=== PATIENT | female | born 1935 ===

== ENCOUNTER 2017-04-14 07:10 | Observation (INO) | payer MEDICAID, OTHER ==
[2017-04-14 07:10] VITALS: BMI 31.4
--- NOTE | 2017-04-14 07:46 | ED PDOC ---
HPI: CCC, URI, Sore Throat Time Seen by Provider: 04/14/17 07:13 Chief Complaint (Provider): Cough, cold, congestion History Per: Patient History/Exam Limitations: no limitations Have you had recent travel within the past 21 days to any of the following countries: [place], [place], [place] or [place]?: No Onset/Duration Of Symptoms: Days Current Symptoms Are (Timing): Still Present Additional Complaint(s): The patient is an 82yo female, presents to the ED complaining of cough for the past week with white sputum. She reports associated mild shortness of breath but denies any fever, chills, chest pain. She has not taken any medications for her symptoms. Patient offers no additional medical complaints. Past Medical History Reviewed: Historical Data, Nursing Documentation, Vital Signs Vital Signs: Last Vital Signs Temp 98.6 F 04/14/17 07:46 Pulse 71 04/14/17 07:46 Resp 18 04/14/17 07:46 BP 161/78 H 04/14/17 07:46 Pulse Ox 98 04/14/17 07:46 - Medical History PMH: Anemia, Arthritis, HTN, Hypercholesterolemia, TIA Denies: HIV, Chronic Kidney Disease - Surgical History Surgical History: Appendectomy - Family History Family History: States: Unknown Family Hx - Home Medications Home Medications: Ambulatory Orders Medication Instructions Recorded Pravastatin Sodium [Pravastatin] 40 mg PO DAILY 09/30/14 Cyanocobalamin [Vitamin B12 1000 1,000 mcg PO DAILY 11/12/14 mcg Tab] Meclizine HCl 25 mg PO BID PRN 11/12/14 [id number] Ethyl Esters [Lovaza] 2 gm PO DAILY 11/12/14 Ciprofloxacin/Ciprofloxa HCl 500 mg PO BID #14 ter 11/15/14 [Ciprofloxacin] Dipyridamole [Persantine] 25 mg PO BID #60 tab 11/15/14 Ferrous Sulfate [Feosol] 324 mg PO BID #0 ect 11/15/14 Metronidazole 500 mg PO TID #21 tab 11/15/14 Meloxicam [Mobic] 15 mg PO DAILY #30 tab 01/06/15 Nitrofurantoin Macrocrystals 100 mg PO BID #14 cap 01/06/15 [Macrobid] Tramadol HCl [Ultram] 50 mg PO Q8 #15 tab 03/24/15 Albuterol 0.083% [Albuterol 0.083% 3 ml IH Q6H PRN #30 neb 04/14/17 Inhal Manisha (2.5 mg/3 ml) UD] Albuterol HFA [Ventolin HFA 90 2 puff IH [id number] PRN #1 bottle 04/14/17 mcg/actuation (8 g)] Azithromycin [Zithromax] 250 mg PO DAILY #4 tab 04/14/17 Nebulizer [Compact Compressor 1 dev XX PRN PRN #1 dev 04/14/17 Nebulizer] Prednisone 50 mg PO DAILY #4 tab 04/14/17 - Allergies Allergies/Adverse Reactions: Allergies Allergy/AdvReac Type Severity Reaction Status Date / Time Penicillins Allergy RASH Verified 04/14/17 07:43 Review of Systems ROS Statement: Except As Marked, All Systems Reviewed And Found Negative Constitutional: Negative for: Fever, Chills Cardiovascular: Negative for: Chest Pain Respiratory: Positive for: Cough, Shortness of Breath (mild), Sputum Physical Exam - Reviewed Nursing Documentation Reviewed: Yes Vital Signs Reviewed: Yes - Physical Exam Appears: Positive for: Well, Non-toxic, No Acute Distress Head Exam: Positive for: ATRAUMATIC, NORMAL INSPECTION, NORMOCEPHALIC Skin: Positive for: Normal Color, Warm, DRY Eye Exam: Positive for: Normal appearance ENT: Positive for: Normal ENT Inspection Neck: Positive for: Normal, Supple Cardiovascular/Chest: Positive for: Regular Rate, Rhythm Respiratory: Positive for: Normal Breath Sounds. Negative for: Respiratory Distress Gastrointestinal/Abdominal: Positive for: Normal Exam, Soft Neurologic/Psych: Positive for: Alert, Oriented. Negative for: Motor/Sensory Deficits - Laboratory Results Result Diagrams: 04/14/17 08:15 04/14/17 08:15 Medical Decision Making Medical Decision Making: Time: 0720 Impression: rule out bronchitis, pneumonia, URI Plan: -- CXR -- Labs -- Duoneb 3.0 ml INH -- Zithromax 500mg/250ml NS Reassess Time: 09 Patient reports feeling much better. Time: 1006 Solumedrol 125 mg IVP ordered Duoneb 3.0 ml INH ordered Time: [address] Sewell, patient's pcp who is aware. Discussed plan of admission with patient for further evaluation. Patient currently refusing to be admitted. Discussed extensively with patient the need for admission and the risks and benefits of going home. Patient expresses understanding but is still refusing admission. Time: 1210 Patient seen and evaluated by Dr. Sewell at bedside, patient is requesting to go home. Dr. Sewell states patient can be discharged home, she will follow up with him. Patient stable for discharge home, and instructed to follow up with her PCP and return to ED if symptoms worsen or new symptoms arise. Patient expresses understanding and is agreeable. Scribe Attestation: Documented by Lianne Stapleton acting as a scribe for Lexi Lei MD. Provider Attestation: All medical record entries made by the Scribe were at my direction and personally dictated by me. I have reviewed the chart and agree that the record accurately reflects my personal performance of the history, physical exam, medical decision making, and the department course for this patient. I have also personally directed, reviewed, and agree with the discharge instructions and disposition. Disposition - Clinical Impression Clinical Impression: Acute bronchitis - Disposition Disposition: Routine/Home Disposition Time: 11:15 Condition: IMPROVED
[2017-04-14 07:50] VITALS: BP 161/78; PULSE 71; RESP 18; TEMP 98.6; O2SAT 98
[2017-04-14] MEDS ORDERED: Azithromycin 500 MG in Sodium Chloride 0.9% 250 ML IV STA (08:00)
[2017-04-14] MEDS ORDERED: Albuterol-Ipratrop 3 mg / 0.5 (3 ml) UD INH STA ×2 (08:00→10:06)
[2017-04-14] MEDS ORDERED: Azithromycin 500 MG IV IVPB ONE (08:30)
[2017-04-14 08:41] LABS: BASO % 0.5 % (0.0-2.0); EOS # 0.4 K/uL (0.0-0.7); EOS % 4.6 % (0.0-4.0); HEMATOCRIT 40.3 % (34.0-47.0); LYMPH # 1.6 K/uL (1.0-4.3); LYMPH % 19.4 % (20.0-40.0); MEAN CELL VOLUME 92.6 fl (81.0-99.0); MEAN CORPUSCULAR HGB CONC 33.5 g/dL (33.0-37.0); MEAN PLATELET VOLUME 8.5 fl (7.2-11.7); MONO # 0.7 K/uL (0.0-0.8); MONO % 8.3 % (0.0-10.0); NEUT # 5.6 K/uL (1.8-7.0); NEUT % 67.2 % (50.0-75.0); WHITE BLOOD COUNT 8.3 K/uL (4.8-10.8)
[2017-04-14 09:10] LABS: ALB/GLOB RATIO 1.2 (1.0-2.1); ALKALINE PHOSPHATASE 72 U/L (38-126); ALT/SGPT 34 U/L (9-52); AST/SGOT 30 U/L (14-36); BILIRUBIN,TOTAL 1.2 mg/dl (0.2-1.3); BLOOD UREA NITROGEN 15 mg/dl (7-17); CALCIUM 9.7 mg/dL (8.4-10.2); CARBON DIOXIDE 28 mmol/L (22-30); CHLORIDE 104 mmol/L (98-107); GFR AFRICAN-AMERICAN > 60; GLUCOSE,RANDOM 103 mg/dL (65-105); POTASSIUM 4.4 MMOL/L (3.6-5.0); SODIUM 142 mmol/l (132-148); TOTAL PROTEIN 8.3 G/DL (6.3-8.2)
--- NOTE | 2017-04-14 10:09 | CARD ---
APPROVED REPORT EKG Measurement Heart [id number] VT [id number] <Conclusion> Normal sinus rhythm Normal ECG
[2017-04-14] MEDS ORDERED: Albuterol-Ipratrop 3 mg / 0.5 (3 ml) UD ONE (10:34)
--- NOTE | 2017-04-14 16:23 | RAD ---
HISTORY: Cough COMPARISON: Comparison made with chest radiograph dated 03/14/2016 TECHNIQUE: Chest PA and lateral FINDINGS: LUNGS: No active pulmonary disease. PLEURA: Minor biapical pleural thickening. No apparent pneumothorax or effusion. CARDIOVASCULAR: Normal. OSSEOUS STRUCTURES: Minor multilevel degenerative spondylosis of the thoracic spine there is mild dextroscoliosis centered at the mid to lower thoracic region. . VISUALIZED UPPER ABDOMEN: Normal. OTHER FINDINGS: None. IMPRESSION: No acute infiltrates. Minor biapical pleural thickening felt be present.
== END 2017-04-14 15:17 | disposition home or self-care (01) ==
LOC: H.ER 07:10 → H.ERHOLD 11:44
PROVIDERS: ADMIT Family Medicine; ATTEND Family Medicine
DX: J20.9 Acute bronchitis, unspecified (principal); E78.00 Pure hypercholesterolemia, unspecified; I10 Essential (primary) hypertension; Z86.73 Personal history of transient ischemic attack (TIA), and cerebral infarction without residual deficits; Z88.0 Allergy status to penicillin; M19.90 Unspecified osteoarthritis, unspecified site
CPT/HCPCS: 71020; 80053; 85025; 87040; 93005; 96365; 96375; 99281; G0378; J0456; J2930

== ENCOUNTER 2017-06-21 10:42 | Emergency (ER) | payer OTHER ==
[2017-06-21 10:43] VITALS: BMI 24.4
[2017-06-21] MEDS ORDERED: Sodium Chloride 0.9% 1,000 ML IV STA (11:24)
[2017-06-21 11:52] LABS: BASO % 0.5 % (0.0-2.0); EOS # 0.2 K/uL (0.0-0.7); EOS % 1.7 % (0.0-4.0); HEMATOCRIT 40.9 % (34.0-47.0); LYMPH # 1.6 K/uL (1.0-4.3); LYMPH % 18.1 % (20.0-40.0); MEAN CORPUSCULAR HEMOGLOBIN 30.9 pg (27.0-31.0); MEAN CORPUSCULAR HGB CONC 33.5 g/dL (33.0-37.0); MEAN PLATELET VOLUME 8.6 fl (7.2-11.7); MONO # 0.5 K/uL (0.0-0.8); MONO % 5.8 % (0.0-10.0); NEUT # 6.5 K/uL (1.8-7.0); NEUT % 73.9 % (50.0-75.0); RED CELL DISTRIBUTION WIDTH 13.4 % (11.5-14.5); WHITE BLOOD COUNT 8.8 K/uL (4.8-10.8)
--- NOTE | 2017-06-21 11:56 | ED PDOC ---
Syncope/Near Syncope/Dizziness Time Seen by Provider: 06/21/17 10:54 Chief Complaint (Nursing): Dizziness/Lightheaded Chief Complaint (Provider): Dizziness History Per: Patient History/Exam Limitations: no limitations Onset/Duration Of Symptoms: Hrs (morning prior to arrival ) Additional Complaint(s): Alisha Concepcion is an 82 year old female with a past medical history of hypercholesterolemia, hypertension, previous TIA, arthritis, and anemia and a past surgical history of an appendectomy and a hernia repair presenting to the ED for an evaluation of dizziness occurring this morning prior to arrival. The patient reports a spinning sensation experienced this morning and states having similar symptoms in the past. She had a cold temperature when touching her face and a minor headache felt to the back of her head associated with her dizziness. She measured her blood pressure this morning resulting as 96/59. The patient did not take her blood pressure medication, Meclizine, this morning which she normally takes twice a day, once in the morning and once at night. Upon evaluation, the patient reports no current dizziness. She denies fever, vomiting, diarrhea, chest pain, shortness of breath, abdominal pain, any disturbance in bowel movements, dysuria, hematuria, leg pain, or leg swelling. PMD: Uzair Sewell MD Past Medical History Reviewed: Historical Data, Nursing Documentation, Vital Signs Vital Signs: Last Vital Signs Temp 97.9 F 06/21/17 10:54 Pulse 63 06/21/17 11:29 Resp 16 06/21/17 11:29 BP 174/95 H 06/21/17 11:29 Pulse Ox 97 06/21/17 11:29 - Medical History PMH: Anemia, Arthritis, HTN, Hypercholesterolemia, TIA Denies: HIV, Chronic Kidney Disease - Surgical History Surgical History: Appendectomy, Hernia Repair - Family History Family History: States: Unknown Family Hx - Social History Current smoker - smoking cessation education provided: No Ex-Smoker (has not smoked in the last 12 months): No Alcohol: None Drugs: Denies - Home Medications Home Medications: Ambulatory Orders Medication Instructions Recorded Pravastatin Sodium [Pravastatin] 40 mg PO DAILY 09/30/14 Cyanocobalamin [Vitamin B12 1000 1,000 mcg PO DAILY 11/12/14 mcg Tab] Meclizine HCl 25 mg PO BID PRN 11/12/14 [id number] Ethyl Esters [Lovaza] 2 gm PO DAILY 11/12/14 Ciprofloxacin/Ciprofloxa HCl 500 mg PO BID #14 ter 11/15/14 [Ciprofloxacin] Dipyridamole [Persantine] 25 mg PO BID #60 tab 11/15/14 Ferrous Sulfate [Feosol] 324 mg PO BID #0 ect 11/15/14 Metronidazole 500 mg PO TID #21 tab 11/15/14 Meloxicam [Mobic] 15 mg PO DAILY #30 tab 01/06/15 Nitrofurantoin Macrocrystals 100 mg PO BID #14 cap 01/06/15 [Macrobid] Tramadol HCl [Ultram] 50 mg PO Q8 #15 tab 03/24/15 Albuterol 0.083% [Albuterol 0.083% 3 ml IH Q6H PRN #30 neb 04/14/17 Inhal Manisha (2.5 mg/3 ml) UD] Albuterol HFA [Ventolin HFA 90 2 puff IH [id number] PRN #1 bottle 04/14/17 mcg/actuation (8 g)] Azithromycin [Zithromax] 250 mg PO DAILY #4 tab 04/14/17 Nebulizer [Compact Compressor 1 dev XX PRN PRN #1 dev 04/14/17 Nebulizer] Prednisone 50 mg PO DAILY #4 tab 04/14/17 - Allergies Allergies/Adverse Reactions: Allergies Allergy/AdvReac Type Severity Reaction Status Date / Time Penicillins Allergy RASH Verified 06/21/17 11:08 Review of Systems ROS Statement: Except As Marked, All Systems Reviewed And Found Negative Constitutional: Positive for: Chills (cold temperature felt to face). Negative for: Fever Cardiovascular: Negative for: Chest Pain Respiratory: Negative for: Shortness of Breath Gastrointestinal: Positive for: Other (normal bowel movements). Negative for: Vomiting, Abdominal Pain, Diarrhea Genitourinary Female: Negative for: Dysuria, Hematuria Musculoskeletal: Negative for: Leg Pain (and no leg swelling) Neurological: Positive for: Headache, Dizziness Physical Exam - Reviewed Nursing Documentation Reviewed: Yes Vital Signs Reviewed: Yes - Physical Exam Appears: Positive for: Non-toxic, No Acute Distress Head Exam: Positive for: ATRAUMATIC, NORMOCEPHALIC Skin: Positive for: Normal Color, Warm, Dry Eye Exam: Positive for: Normal appearance, EOMI, PERRL. Negative for: Nystagmus ENT: Positive for: Normal ENT Inspection Neck: Positive for: Normal, Painless ROM, Supple Cardiovascular/Chest: Positive for: Regular Rate, Rhythm, Chest Non Tender Respiratory: Positive for: Normal Breath Sounds. Negative for: Respiratory Distress Gastrointestinal/Abdominal: Positive for: Normal Exam, Soft. Negative for: Tenderness Back: Positive for: Normal Inspection Extremity: Positive for: Normal ROM. Negative for: Deformity Neurologic/Psych: Positive for: Alert, Oriented (x3), Gait (normal). Negative for: Motor/Sensory Deficits (upper and lower motor sensations intact) - Laboratory Results Result Diagrams: 06/21/17 11:45 06/21/17 11:45 - ECG O2 Sat by Pulse Oximetry: 97 (RA) Pulse Ox Interpretation: Normal Medical Decision Making Medical Decision Making: Time: 10:54 Impression: Dizziness Plan: * CMP * Troponin I * CBC (with differential) * Erythrocyte Sedimentation Rate * Urinalysis * Antivert 25 mg PO * NS 0.9% 1,000 ml 125 mls/hr * CT Head W/O Contrast * Reevaluation Scribe Attestation: Documented by Emilie Duffy, acting as a scribe for Suyapa Garrido MD. Provider Scribe Attestation: All medical record entries made by the Scribe were at my direction and personally dictated by me. I have reviewed the chart and agree that the record accurately reflects my personal performance of the history, physical exam, medical decision making, and the department course for this patient. I have also personally directed, reviewed, and agree with the discharge instructions and disposition. 2.00pm - patient is feeling better since arrival. Her CT and labs are unrevealing of acute pathology. She had lunch and has not had further discomfort. Disposition - Clinical Impression Clinical Impression: Dizzy spells - Patient ED Disposition Is Patient to be Admitted: No Doctor Will See Patient In The: Office Counseled Patient/Family Regarding: Diagnosis, Need For Followup - Disposition Disposition: Routine/Home Disposition Time: 14:28 Condition: IMPROVED Instructions: Vertigo (ED), Dizziness (ED) Forms: [facility] (Czech) - POA Present On Arrival: None
[2017-06-21 12:04] LABS: ALB/GLOB RATIO 1.2 (1.0-2.1); ALKALINE PHOSPHATASE 70 U/L (38-126); ALT/SGPT 30 U/L (9-52); AST/SGOT 27 U/L (14-36); BILIRUBIN,TOTAL 0.7 mg/dl (0.2-1.3); BLOOD UREA NITROGEN 17 mg/dl (7-17); CALCIUM 9.7 mg/dL (8.4-10.2); CARBON DIOXIDE 28 mmol/L (22-30); CHLORIDE 105 mmol/L (98-107); GFR AFRICAN-AMERICAN > 60; GLUCOSE,RANDOM 99 mg/dL (65-105); POTASSIUM 4.7 MMOL/L (3.6-5.0); SODIUM 143 mmol/l (132-148); TOTAL PROTEIN 8.2 G/DL (6.3-8.2)
[2017-06-21 12:08] LABS: RBC URINE 5 /hpf (0-3); URINE BILIRUBIN NEGATIVE (NEGATIVE); URINE BLOOD MODERATE (NEGATIVE); URINE COLOR YELLOW (YELLOW); URINE GLUCOSE (UA) NEG (Normal); URINE KETONE NEGATIVE (NEGATIVE); URINE LEUKOCYTE ESTERASE TRACE Leu/uL (Negative); URINE PROTEIN NEGATIVE (NEGATIVE); URINE UROBILINOGEN 0.2-1.0 mg/dL (0.2-1.0); WBC URINE 4 /hpf (0-5)
--- NOTE | 2017-06-21 12:25 | CT ---
PROCEDURE: CT HEAD WITHOUT CONTRAST. HISTORY: dizziness COMPARISON: None available. TECHNIQUE: Axial computed tomography images were obtained through the head/brain without intravenous contrast. Radiation dose: Total exam DLP = 792.77 mGy-cm. This CT exam was performed using one or more of the following dose reduction techniques: Automated exposure control, adjustment of the mA and/or kV according to patient size, and/or use of iterative reconstruction technique. FINDINGS: Evaluation of posterior fossa limited due to patient motion artifact. HEMORRHAGE: No intracranial hemorrhage. BRAIN: No mass effect or edema. Mild age-appropriate diffuse atrophy. 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 No evidence of acute infarct. Mild chronic periventricular white matter ischemic change with patchy deep and subcortical foci of chronic white matter ischemic change. VENTRICLES: Unremarkable. No hydrocephalus. CALVARIUM: Unremarkable. PARANASAL SINUSES: Unremarkable as visualized. No significant inflammatory changes. MASTOID AIR CELLS: Unremarkable as visualized. No inflammatory changes. OTHER FINDINGS: None. IMPRESSION: No intracranial mass, hemorrhage or evidence of acute infarct. Age-appropriate atrophy and chronic white matter ischemic change. Small old bilateral basal ganglia lacunar infarct.
[2017-06-21 15:02] VITALS: BP 148/73; PULSE 93; RESP 17; TEMP 97.8; O2SAT 99
== END 2017-06-21 14:59 | disposition home or self-care (01) ==
LOC: H.ER 10:42
DX: R42 Dizziness and giddiness (principal); E78.00 Pure hypercholesterolemia, unspecified; I10 Essential (primary) hypertension; Z86.73 Personal history of transient ischemic attack (TIA), and cerebral infarction without residual deficits; Z88.0 Allergy status to penicillin
CPT/HCPCS: 70450; 80053; 81003; 84484; 85025; 85651; 99285; J7040

== ENCOUNTER 2017-12-10 13:47 | Emergency (ER) | payer OTHER ==
[2017-12-10 13:47] VITALS: BMI 24.4
[2017-12-10 14:05] VITALS: O2SAT 98
--- NOTE | 2017-12-10 14:25 | ED PDOC ---
Syncope/Near Syncope/Dizziness Time Seen by Provider: 12/10/17 13:58 Chief Complaint (Nursing): Dizziness/Lightheaded Chief Complaint (Provider): Dizziness History Per: Patient History/Exam Limitations: no limitations Onset/Duration Of Symptoms: Days Current Symptoms Are (Timing): Still Present Associated Symptoms Preceding Syncopal Episode: Lightheadedness Additional Complaint(s): 82yo female with history of hypertension, diabetes, high cholesterol, presents to ED for evaluation of dizziness. Patient states the dizziness is non- vertiginious and denies any room spinning sensations. She reports associated frontal headache and nausea as well. Patient denies any photophobia, neck pain, loss of consciousness, weakness, numbness, tingling, abdominal pin, vomiting or diarrhea. Patient states she has had similar symptoms in the past and had "collapsed" but denies any such instances this time. She also states she was taking meclizine for the dizziness but for the past week she has not been able to as she ran out of her medication. She has no other medical complaints. No chest pain or dyspnea. Headache is mild, not worst in her life. PMD: Dr. Sewell Past Medical History Reviewed: Historical Data, Nursing Documentation, Vital Signs Vital Signs: Last Vital Signs Temp 98 F 12/10/17 13:51 Pulse 68 12/10/17 14:04 Resp 19 12/10/17 14:04 BP 130/65 12/10/17 14:04 Pulse Ox 98 12/10/17 14:04 - Medical History PMH: Anemia, Arthritis, HTN, Hypercholesterolemia, TIA Denies: HIV, Chronic Kidney Disease - Surgical History Surgical History: Appendectomy, Hernia Repair - Family History Family History: States: No Known Family Hx, Unknown Family Hx - Living Arrangements Living Arrangements: Alone - Social History Current smoker - smoking cessation education provided: No Alcohol: None Drugs: Denies - Home Medications Home Medications: Ambulatory Orders Medication Instructions Recorded Pravastatin Sodium [Pravastatin] 40 mg PO DAILY 09/30/14 Cyanocobalamin [Vitamin B12 1000 1,000 mcg PO DAILY 11/12/14 mcg Tab] Meclizine HCl 25 mg PO BID PRN 11/12/14 [id number] Ethyl Esters [Lovaza] 2 gm PO DAILY 11/12/14 Ciprofloxacin/Ciprofloxa HCl 500 mg PO BID #14 ter 11/15/14 [Ciprofloxacin] Dipyridamole [Persantine] 25 mg PO BID #60 tab 11/15/14 Ferrous Sulfate [Feosol] 324 mg PO BID #0 ect 11/15/14 Metronidazole 500 mg PO TID #21 tab 11/15/14 Meloxicam [Mobic] 15 mg PO DAILY #30 tab 01/06/15 Nitrofurantoin Macrocrystals 100 mg PO BID #14 cap 01/06/15 [Macrobid] Tramadol HCl [Ultram] 50 mg PO Q8 #15 tab 03/24/15 Albuterol 0.083% [Albuterol 0.083% 3 ml IH Q6H PRN #30 neb 04/14/17 Inhal Manisha (2.5 mg/3 ml) UD] Albuterol HFA [Ventolin HFA 90 2 puff IH [id number] PRN #1 bottle 04/14/17 mcg/actuation (8 g)] Azithromycin [Zithromax] 250 mg PO DAILY #4 tab 04/14/17 Nebulizer [Compact Compressor 1 dev XX PRN PRN #1 dev 04/14/17 Nebulizer] Prednisone 50 mg PO DAILY #4 tab 04/14/17 - Allergies Allergies/Adverse Reactions: Allergies Allergy/AdvReac Type Severity Reaction Status Date / Time Penicillins Allergy RASH Verified 06/21/17 11:08 Review of Systems ROS Statement: Except As Marked, All Systems Reviewed And Found Negative Constitutional: Negative for: Weakness Eyes: Negative for: Vision Change Gastrointestinal: Positive for: Nausea. Negative for: Vomiting, Abdominal Pain , Diarrhea Neurological: Positive for: Headache, Dizziness. Negative for: Weakness, Numbness Physical Exam - Reviewed Nursing Documentation Reviewed: Yes Vital Signs Reviewed: Yes - Physical Exam Appears: Positive for: Non-toxic, No Acute Distress Skin: Positive for: Normal Color, Warm, Dry Eye Exam: Positive for: Normal appearance, EOMI, PERRL. Negative for: Nystagmus ENT: Positive for: Normal ENT Inspection Neck: Positive for: Normal, Painless ROM, Supple Cardiovascular/Chest: Positive for: Regular Rate, Rhythm Respiratory: Positive for: Normal Breath Sounds. Negative for: Respiratory Distress Gastrointestinal/Abdominal: Positive for: Normal Exam, Soft. Negative for: Tenderness Back: Positive for: Normal Inspection. Negative for: L CVA Tenderness, R CVA Tenderness Extremity: Positive for: Normal ROM. Negative for: Tenderness, Pedal Edema, Deformity, Swelling Neurologic/Psych: Positive for: Alert, respiratory care assistant II-XII, Oriented. Negative for: Motor/Sensory Deficits, Aphasia, Facial Droop - Laboratory Results Result Diagrams: 12/10/17 14:51 12/10/17 14:51 Interpretation Of Abn Labs: no acute - ECG ECG: Positive for: Interpreted By Me, Viewed By Me ECG Rhythm: Positive for: Normal QRS, Normal ST Segment, Sinus Rhythm O2 Sat by Pulse Oximetry: 98 (RA) Pulse Ox Interpretation: Normal - CT Scan/US ct Other Rad Studies (CT/US): Read By Radiologist Other Rad Interpretation: no acute - Progress ED Course And Treament: 1641: Stable. Feels much better. AAOx3. Tolerated. No dizziness. Wants tylenol for headache. Will go home and fu with Dr. Sewell. Medical Decision Making Medical Decision Making: Impression: Dizziness Plan: -- Labs -- IV Fluids -- Meclizine 25mg PO -- CT head w/o contrast -- EKG Scribe attestation: Documented by Lianne Stapleton acting as a scribe for Armen Robertson MD. Provider attestation: All medical record entries made by the Scribe were at my direction and personally dictated by me. I have reviewed the chart and agree that the record accurately reflects my personal performance of the history, physical exam, medical decision making, and the department course for this patient. I have also personally directed, reviewed, and agree with the discharge instructions and disposition. Disposition - Clinical Impression Clinical Impression: Dizziness - Patient ED Disposition Is Patient to be Admitted: No Counseled Patient/Family Regarding: Studies Performed, Diagnosis, Need For Followup, Rx Given - Disposition Referrals: [facility] [Outside] - 12/11/17 Disposition: Routine/Home Disposition Time: 16:42 Condition: STABLE Additional Instructions: Rturn if not better in 3 days. Instructions: Dizziness, Nonvertigo, (DC) Forms: [employer] (Mongolian)
[2017-12-10] MEDS: Sodium Chloride 0.9% 1,000 ML IV STA (14:40)
[2017-12-10 15:00] LABS: BASO % 0.3 % (0.0-2.0); EOS # 0.2 K/uL (0.0-0.7); HEMOGLOBIN 14.1 g/dL (12.0-16.0); LYMPH # 1.6 K/uL (1.0-4.3); LYMPH % 15.2 % (20.0-40.0); MEAN CELL VOLUME 91.3 fl (81.0-99.0); MEAN CORPUSCULAR HEMOGLOBIN 31.3 pg (27.0-31.0); MEAN CORPUSCULAR HGB CONC 34.3 g/dL (33.0-37.0); MEAN PLATELET VOLUME 8.1 fl (7.2-11.7); MONO # 0.6 K/uL (0.0-0.8); MONO % 5.4 % (0.0-10.0); NEUT # 8.3 K/uL (1.8-7.0); NEUT % 77.1 % (50.0-75.0); RBC 4.5 Mil/uL (3.80-5.20); RED CELL DISTRIBUTION WIDTH 13.8 % (11.5-14.5); WHITE BLOOD COUNT 10.8 K/uL (4.8-10.8)
[2017-12-10 15:11] LABS: ALBUMIN 4.2 g/dL (3.5-5.0); ALT/SGPT 36 U/L (9-52); AST/SGOT 29 U/L (14-36); BLOOD UREA NITROGEN 21 mg/dl (7-17); GFR AFRICAN-AMERICAN > 60; GFR NON-AFRICAN AMERICAN 60
[2017-12-10 15:24] LABS: PARTIAL THROMBOPLASTIN TIME 25.6 Seconds (25.6-37.1)
--- NOTE | 2017-12-10 15:54 | CT ---
PROCEDURE: CT HEAD WITHOUT CONTRAST. HISTORY: headache COMPARISON: 06/21/2017 TECHNIQUE: Axial computed tomography images were obtained through the head/brain without intravenous contrast. Radiation dose: Total exam DLP = 802.76 mGy-cm. This CT exam was performed using one or more of the following dose reduction techniques: Automated exposure control, adjustment of the mA and/or kV according to patient size, and/or use of iterative reconstruction technique. FINDINGS: HEMORRHAGE: No intracranial hemorrhage. BRAIN: No mass effect or edema. Minimal age-appropriate diffuse atrophy. Mild chronic periventricular white matter ischemic change. 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 No evidence of acute infarct. VENTRICLES: Unremarkable. No hydrocephalus. CALVARIUM: Unremarkable. PARANASAL SINUSES: Unremarkable as visualized. No significant inflammatory changes. MASTOID AIR CELLS: Unremarkable as visualized. No inflammatory changes. OTHER FINDINGS: None. IMPRESSION: Age-appropriate involutional change. No intracranial mass, hemorrhage or evidence of acute infarct.
[2017-12-10 17:15] VITALS: BP 116/63; PULSE 78; RESP 19; TEMP 97.6
--- NOTE | 2017-12-11 08:12 | CARD ---
APPROVED REPORT EKG Measurement Heart [id number] UT [id number] <Conclusion> Normal sinus rhythm Normal ECG
== END 2017-12-10 17:00 | disposition home or self-care (01) ==
LOC: H.ER 13:47
DX: R42 Dizziness and giddiness (principal); E78.00 Pure hypercholesterolemia, unspecified; I10 Essential (primary) hypertension; Z86.73 Personal history of transient ischemic attack (TIA), and cerebral infarction without residual deficits; Z88.0 Allergy status to penicillin
CPT/HCPCS: 70450; 80053; 84484; 85025; 85610; 85730; 93005; 99285; J7040

== ENCOUNTER 2018-01-20 14:18 | Emergency (ER) | payer OTHER ==
[2018-01-20 14:18] VITALS: BMI 24.4
[2018-01-20 14:26] VITALS: TEMP 97; O2SAT 100
[2018-01-20] MEDS ORDERED: Albuterol-Ipratrop 3 mg / 0.5 (3 ml) UD IH STA (14:51)
--- NOTE | 2018-01-20 14:54 | ED PDOC ---
HPI: CCC, URI, Sore Throat Time Seen by Provider: 01/20/18 14:29 Chief Complaint (Nursing): Shortness Of Breath History Per: Patient Onset/Duration Of Symptoms: Days (2) Current Symptoms Are (Timing): Still Present Associated Symptoms: Cough, Sputum. denies: Fever Additional Complaint(s): Cough productive white sputum assoc with mild SOB. No fever or chest pain. Uses nebulizer at home. Past Medical History Vital Signs: Last Vital Signs Temp 97 F L 01/20/18 14:23 Pulse 98 H 01/20/18 14:23 Resp 16 01/20/18 15:37 BP 126/61 01/20/18 14:23 Pulse Ox 100 01/20/18 15:37 - Medical History PMH: Anemia, Arthritis, HTN, Hypercholesterolemia, TIA Denies: HIV, Chronic Kidney Disease - Surgical History Surgical History: Appendectomy, Hernia Repair - Family History Family History: States: Unknown Family Hx - Home Medications Home Medications: Ambulatory Orders Medication Instructions Recorded Pravastatin Sodium [Pravastatin] 40 mg PO DAILY 09/30/14 Cyanocobalamin [Vitamin B12 1000 1,000 mcg PO DAILY 11/12/14 mcg Tab] Meclizine HCl 25 mg PO BID PRN 11/12/14 [id number] Ethyl Esters [Lovaza] 2 gm PO DAILY 11/12/14 Ciprofloxacin/Ciprofloxa HCl 500 mg PO BID #14 ter 11/15/14 [Ciprofloxacin] Dipyridamole [Persantine] 25 mg PO BID #60 tab 11/15/14 Ferrous Sulfate [Feosol] 324 mg PO BID #0 ect 11/15/14 Metronidazole 500 mg PO TID #21 tab 11/15/14 Meloxicam [Mobic] 15 mg PO DAILY #30 tab 01/06/15 Nitrofurantoin Macrocrystals 100 mg PO BID #14 cap 01/06/15 [Macrobid] Tramadol HCl [Ultram] 50 mg PO Q8 #15 tab 03/24/15 Albuterol 0.083% [Albuterol 0.083% 3 ml IH Q6H PRN #30 neb 04/14/17 Inhal Manisha (2.5 mg/3 ml) UD] Albuterol HFA [Ventolin HFA 90 2 puff IH [id number] PRN #1 bottle 04/14/17 mcg/actuation (8 g)] Azithromycin [Zithromax] 250 mg PO DAILY #4 tab 04/14/17 Nebulizer [Compact Compressor 1 dev XX PRN PRN #1 dev 04/14/17 Nebulizer] Prednisone 50 mg PO DAILY #4 tab 04/14/17 Meclizine [Meclizine*] 25 mg PO Q12 PRN #10 tab 12/10/17 Prednisone 50 mg PO DAILY #5 tab 01/20/18 - Allergies Allergies/Adverse Reactions: Allergies Allergy/AdvReac Type Severity Reaction Status Date / Time Penicillins Allergy RASH Verified 01/20/18 14:22 Review of Systems Constitutional: Negative for: Fever Cardiovascular: Negative for: Chest Pain Respiratory: Positive for: Cough, Sputum Physical Exam - Physical Exam Appears: Positive for: Non-toxic, No Acute Distress Skin: Positive for: Normal Color, Warm, DRY Cardiovascular/Chest: Positive for: Regular Rate, Rhythm Respiratory: Positive for: Rhonchi, Wheezing (Mild end expiratory). Negative for: Respiratory Distress Neurologic/Psych: Positive for: Alert, Oriented - ECG O2 Sat by Pulse Oximetry: 100 Disposition - Clinical Impression Clinical Impression: Bronchitis - Patient ED Disposition Is Patient to be Admitted: No Counseled Patient/Family Regarding: Studies Performed, Diagnosis, Need For Followup, Rx Given - Disposition Referrals: Uzair Sewell MD [Staff Provider] - Disposition: Routine/Home Disposition Time: 15:50 Condition: FAIR Prescriptions: Prednisone 50 mg PO DAILY #5 tab Instructions: Chronic Bronchitis Forms: [employer] (Syrian)
[2018-01-20 15:39] VITALS: RESP 16
--- NOTE | 2018-01-20 15:45 | RAD ---
HISTORY: COMPARISON: 04/14/2017. TECHNIQUE: Chest PA and lateral FINDINGS: LINES AND TUBES: None. LUNG AND PLEURA: The lungs are well inflated and clear. No pleural effusion or pneumothorax. HEART AND MEDIASTINUM: The heart is not enlarged. The hilar and mediastinal contours are within normal limits. SKELETAL STRUCTURES: The bony structures are within normal limits for the patient's age. VISUALIZED UPPER ABDOMEN: Normal. OTHER FINDINGS: None. IMPRESSION: No active pulmonary disease.
[2018-01-20] MEDS ORDERED: guaiFENesin-Codeine 100-10mg/5ml Syrup (5 ml) UD PO STA (18:58)
[2018-01-20] MEDS ORDERED: guaiFENesin-Codeine 100-10mg/5ml Syrup (5 ml) UD ONE (18:58)
[2018-01-20 19:08] VITALS: BP 125/80; PULSE 75
== END 2018-01-20 19:07 | disposition home or self-care (01) ==
LOC: H.ER 14:18
DX: J40 Bronchitis, not specified as acute or chronic (principal)